=== PATIENT | female | born 1985 | race Caucasian/White ===

== ENCOUNTER 2022-01-31 09:15 | Outpatient (CLI) | payer OTHER, SELFPAY ==
[2022-01-31 15:22] LABS: Albumin* 4.1 g/dL (3.3-5.0); Chloride* 105 mmol/L (96-114); Sodium* 140 mmol/L (135-149)
[2022-01-31 15:23] LABS: Potassium* 4.5 mmol/L (3.6-5.1)
[2022-01-31 15:25] LABS: Alanine Aminotransferase* 21 U/L (4-35); Alkaline Phosphatase* 83 U/L (40-150); Aspartate Amino Transferase* 19 U/L (12-35); Bilirubin Total* 0.2 mg/dL (0.1-1.5); Blood Urea Nitrogen* 13 mg/dL (5-24); Carbon Dioxide* 27 mmol/L (20-32); Creatinine* 0.8 mg/dL (0.5-1.5); Estimated Glomerular Filt Rate 98 ml/min; Glucose* 83 mg/dL (60-115); Total Protein* 7.1 g/dL (6.0-8.3)
[2022-01-31 15:26] LABS: Basophils Absolute Auto 0.04 K/uL (0.00-0.30); Basophils Percent Auto 0.4 % (0.0-3.0); Calcium* 9.2 mg/dL (8.4-10.6); Eosinophils Absolute Auto 0.11 K/uL (0.00-0.50); Eosinophils Percent Auto 1.2 % (0.0-7.0); Hematocrit 40.5 % (33.0-51.0); Hemoglobin* 12.6 gm/dL (12.0-16.0); Immature Granulocytes Abs Auto 0.05 K/uL (0.00-0.30); Lymphocytes Absolute Auto 2.61 K/uL (0.90-2.90); Lymphocytes Percent Auto 28.5 % (20-44); Mean Corpuscular HGB Conc 31 gm/dL (32-36); Mean Corpuscular Hemoglobin 27 pg (26-34); Mean Corpuscular Volume 87 fL (80-100); Monocytes Percent Auto 6.5 % (0.0-11.0); Neutrophils Absolute Auto 5.76 K/uL (1.7-7.0); Neutrophils Percent Auto 62.9 % (42.0-72.0); Platelet Count* 306 K/uL (140-440); RDW Coefficient of Variation % 14.3 % (11.5-15.5); Red Blood Count 4.68 m/uL (4.00-5.20); White Blood Count* 9.17 K/uL (4.50-11.00)
[2022-01-31 15:34] LABS: Slide Review Reflex No
== END 2022-01-31 09:16 | disposition home or self-care (01) ==
PROVIDERS: PCP Nurse Practitioner Family; Visit Provider Nurse Practitioner Family
DX: E66.01 Morbid (severe) obesity due to excess calories (principal); Z68.43 Body mass index [BMI] 50.0-59.9, adult; R53.83 Other fatigue
CPT/HCPCS: 36415; 80053; 84443; 85025

== ENCOUNTER 2022-10-21 14:50 | Outpatient (CLI) | payer OTHER, SELFPAY | END 2022-10-21 14:51 | disposition home or self-care (01) | LOC: KYNREF 15:23 | PROVIDERS: PCP Nurse Practitioner Family; Referring Provider Nurse Practitioner Family; Visit Provider Nurse Practitioner Family | DX: R30.0 Dysuria (principal); N39.0 Urinary tract infection, site not specified | CPT/HCPCS: 81015; 87086 ==

== ENCOUNTER 2023-05-12 13:47 | Outpatient (CLI) | payer OTHER, SELFPAY | END 2023-05-12 13:48 | disposition home or self-care (01) | PROVIDERS: PCP Nurse Practitioner Family; Visit Provider Nurse Practitioner Family | DX: R10.12 Left upper quadrant pain (principal) | CPT/HCPCS: 80053; 82150; 83690; 85025; 87338 ==

== ENCOUNTER 2024-07-05 09:30 | Outpatient (CLI) | payer OTHER, SELFPAY | END 2024-07-05 09:31 | disposition home or self-care (01) | LOC: KYNREF 15:03 | PROVIDERS: PCP Nurse Practitioner Family; Visit Provider Nurse Practitioner Family | DX: M54.9 Dorsalgia, unspecified (principal); R07.89 Other chest pain | CPT/HCPCS: 87338 ==

== ENCOUNTER 2024-07-11 07:06 | Outpatient (CLI) | payer OTHER, SELFPAY ==
--- NOTE | 2024-07-11 07:15 | CRLHL7_ITS ---
For Patients: As a result of the Century Cures Act, medical imaging exams and procedure reports are released immediately into your electronic medical record. You may view this report before your referring provider. If you have questions, please contact your health care provider. INDICATION: Gallbladder dysfunction, back pain COMPARISON: Outside CT 06/19/2023 TECHNIQUE: Real time bartlett scale imaging and color Doppler analysis was performed of the right upper quadrant. FINDINGS: Liver echotexture is diffusely increased. No intrahepatic mass. Liver measures 18.2 cm. There is a normal appearance of the hepatic IVC and proximal abdominal aorta. There is no evidence of ascites. Shadowing echogenic stones are again noted within the gallbladder. The gallbladder wall measures 2 mm in thickness. The common bile duct is of normal size and measures 4 mm in diameter at the level of the claudy hepatis. The pancreas appears hyperechoic. There is no evidence of a stone or hydronephrosis within the right kidney. The right kidney measures 12.6 cm in length. IMPRESSION: Diffuse hepatic steatosis. Chronic cholelithiasis. Dictated by Ajay Hall MD @ 07/11/2024 8:33:24 AM (Electronically Signed)
== END 2024-07-11 07:07 | disposition home or self-care (01) ==
PROVIDERS: PCP Nurse Practitioner Family; Visit Provider Nurse Practitioner Family
DX: M54.9 Dorsalgia, unspecified (principal); K76.0 Fatty (change of) liver, not elsewhere classified; K80.20 Calculus of gallbladder without cholecystitis without obstruction; R07.89 Other chest pain
CPT/HCPCS: 76705

== ENCOUNTER 2024-09-12 13:52 | Outpatient (CLI) | payer OTHER, SELFPAY | END 2024-09-12 13:53 | disposition home or self-care (01) | PROVIDERS: PCP Nurse Practitioner Family; Visit Provider Nurse Practitioner Family | DX: E66.01 Morbid (severe) obesity due to excess calories (principal); R73.09 Other abnormal glucose; Z13.21 Encounter for screening for nutritional disorder | CPT/HCPCS: 80053; 80061; 82306; 84443 ==

== ENCOUNTER 2024-12-27 11:38 | Outpatient (CLI) | payer OTHER, SELFPAY ==
[2024-12-27 13:52] LABS: Strep A DNA Probe* NOT DETECTED (Not Detectd)
[2024-12-27 13:58] LABS: SARS PCR* Negative SARS-CoV-2 (Negative)
--- OUTSIDE RECORDS SUMMARY | 2024-12-28 00:27 | XMS_ITS | Encounter Summary ---
Author Organization [facility] Address [address] [place] [address] Care Team Providers Care Art Instructor Name Role Phone No Primary/Referring, Phy Primary Care Provider Unavailable Encounter Details Date Type Department Care Team (Latest Contact Info) Description 03/29/2014 Correspondence TMD at [facility] [address] [facility] [place] [address] Dino Bolton, DDS, MS [address] [place] [address] MAX STABILIZATION SPLINT Social History Tobacco Use Types Packs/Day Years Used Date Smoking Tobacco: Never Assessed Comments Unknown Sex and Gender Information Value Date Recorded Sex Assigned at Not on file Legal Sex Female 5:01 AM CDT Gender Identity Not on file Sexual Orientation Not on file documented as of this encounter Plan of Treatment Not on file documented as of this encounter Visit Diagnoses Not on filedocumented in this encounter Care Teams Art Instructor Relationship Specialty Start Date End Date No Primary/Referring, Domi PCP - General 03/27/14 documented as of this encounter
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
--- OUTSIDE RECORDS SUMMARY | 2024-12-28 00:27 | XMS_ITS | Encounter Summary ---
Author Organization [facility] Address [address] [place] [address] Care Team Providers Care Wheel And Pinion Inspector Name Role Phone No Primary/Referring, Phy Primary Care Provider Unavailable Encounter Details Date Type Department Care Team (Latest Contact Info) Description 07/05/2014 Correspondence TMD at [facility] [place] [address] [place] [address] Dino Bolton, DDS, MS [address] [place] [address] REFILL AUTHORIZATION REQUEST Social History Tobacco Use Types Packs/Day Years [...] on filedocumented in this encounter Care Teams Wheel And Pinion Inspector Relationship Specialty Start Date End Date No Primary/Referring, Domi PCP - General 03/27/14 documented as of this encounter
--- OUTSIDE RECORDS SUMMARY | 2024-12-28 00:27 | XMS_ITS | Encounter Summary ---
Author Organization [facility] Address [address] [place] [address] Care Team Providers Care Dictaphone Transcriber Name Role Phone No Primary/Referring, Phy Primary Care Provider Unavailable Encounter Details Date Type Department Care Team (Latest Contact Info) Description 03/20/2014 Correspondence TMD at [facility] [place] [address] [place] [address] Dino Bolton, DDS, MS [address] [place] [address] MAX STABILIZATION SPLINT Social History Tobacco Use [...] on filedocumented in this encounter Care Teams Dictaphone Transcriber Relationship Specialty Start Date End Date No Primary/Referring, Domi PCP - General 03/27/14 documented as of this encounter
--- OUTSIDE RECORDS SUMMARY | 2024-12-28 00:27 | XMS_ITS | Encounter Summary ---
Author Organization [facility] Address [address] [place] [address] Care Team Providers Care Aerospace Manager Name Role Phone No Primary/Referring, Phy Primary Care Provider Unavailable Encounter Details Date Type Department Care Team (Latest Contact Info) Description 04/24/1997 Orders Only Pepe Shah (Larry Galan) Social History Tobacco Use Types Packs/Day Years [...] on filedocumented in this encounter Care Teams Aerospace Manager Relationship Specialty Start Date End Date No Primary/Referring, Phy PCP - General 03/27/14 documented as of this encounter
--- OUTSIDE RECORDS SUMMARY | 2024-12-28 00:27 | XMS_ITS | Encounter Summary ---
Author Organization [facility] Address [address] [place] [address] Care Team Providers Care Office Services Clerk Name Role Phone No Primary/Referring, Phy Primary Care Provider Unavailable Encounter Details Date Type Department Care Team (Latest Contact Info) Description 04/05/2014 Correspondence TMD at [facility] [place] [address] [place] [address] Dino Bolton, DDS, MS [address] [place] [address] MEDICAL EQUIPMENT PROOF OF DELIVERY Social History Tobacco Use Types Packs/Day Years [...] on filedocumented in this encounter Care Teams Office Services Clerk Relationship Specialty Start Date End Date No Primary/Referring, Domi PCP - General 03/27/14 documented as of this encounter
--- OUTSIDE RECORDS SUMMARY | 2024-12-28 00:28 | XMS_ITS | Patient Health Record ---
Author Organization [facility] Address [address] [phone] Care Team Providers [employer] Sales Representative Name Role Phone [employer], PROVIDER Primary Care Provider Unavailab le Allergies Allergen (clinical drug ingredient) Drug/Non Drug Allergy documented on EMR Reaction Allergy Type Onset Date Status fluticasone / salmeterol Advair Diskus nausea Drug Allerg y Active penicillin V Penicillin V Potassium rash Drug Allergy Active acetaminophen / oxycodone Percocet itching Drug Allergy Active Reason For Referral No Information Medications Medication SIG (Take, Route, Frequency, Duration) Notes Start Date End Date Status Multivitamin - 1 tab(s) orally once a day Active Ventolin HFA 108 (90 Base) MCG/ACT 2 puff(s) inhaled 4 times a day prn 05/06/2017 Not-Taking Albuterol Sulfate (2.5 MG/3ML) 0.083% 3 mL by nebulizer every 6 hours prn 05/14/2017 Not-Taking Ketoconazole 2 % 1 ezequiel applied topically once a day 09/12/2009 Not-Taking Vanicream - 1 ezequiel applied topically 2 times a day 05/27/2018 Active Triamcinolone Acetonide 0.1 % 1 ezequiel applied topically 3 times a day 05/27/2018 Active zzz(CUSTOM Rx) PROPANOLOL *please review for potential update for e-prescription and drug interaction check* Not-Taking Tri Femynor 0.18/0.215/0.25 MG-35 MCG 1 tab(s) orally once a day; Duration: 28 day(s) needs appointment 11/18/2018 Active Asmanex HFA 100 MCG/ACT 1-2 puffs inhaled 2 times a day 05/14/2017 Not-Taking Iron 100 Plus 100-250-0.025-1 MG 1 tab(s) orally once a day Active Vitamin D High Potency 25 MCG (1000 UT) 1 tab once a day Not-Taking Vitamins 28-0.8 MG as directed qd Not-Taking Immunizations Vaccine Route Administration Date Status Comme nts DTP (History Only) Unknown 1986 Administered DTP (History Only) Unknown 1986 Administered DTP (History Only) Unknown 03/13/1987 Administered DTP (History Only) Unknown 06/13/1988 Administered DTP (History Only) Unknown 10/05/1991 Administered Hepatitis B through 19 yrs Unknown 01/15/1999 Administered Hepatitis B through 19 yrs Unknown 08/08/1999 Administered Hepatitis B through 19 yrs Unknown 05/20/2002 Administered Hib Unknown 06/13/1988 Administered HPV (Gardasil) IM Intramuscular 05/24/2007 Administered HPV (Gardasil) IM Intramuscular 07/30/2007 Administered HPV (Gardasil) IM Intramuscular 09/12/2009 Administered IPV Unknown 1986 Administered IPV Unknown 03/13/1987 Administered IPV Unknown 06/13/1988 Administered IPV Unknown 10/05/1991 Administered MMR Unknown 12/03/1987 Administered MMR Unknown 10/05/1991 Administered Td (7 yrs and Older) Unknown 01/15/1999 Administered Td (7 yrs and Older) Unknown 06/18/2004 Administered Tdap (Adacel 11-64 yrs) IM Intramuscular 09/12/2009 Admini stered Social History Tobacco Use: Social History Observation Description Date Details (start date - stop date) Former Smoker NA - NA Tobacco Status Question Answer Notes I am: former smoker How long has it been since you last smoked? 3-6 months Do you use other forms of tobacco? No Problems Problem Type SNOMED Code ICD Code Onset Dates Problem Status W/U Status Risk Notes Problem Sinusitis (07581370) Sinusitis (J32.9) Active confirmed Problem Irritable bowel (39699175) Irritable bowel (K58.9) Active confirmed Problem Secondary amenorrhea (122040763) Secondary amenorrhea (N91.1) Active confirmed Problem Morbid obesity (008225143) Morbid obesity due to excess calories (E66.01) Active confirmed Problem Migraine with aura (3574971) Migraine with aura and with status migrainosus, not intractable (G43.101) Active confirmed Plan Of Treatment No Information Insurance Providers Payer Name Payer Address Payer Phone Subscriber Number Group Number Insured Name Patient Relationship to Insured Coverage Start Date Coverage End Date [employer] [address] [place] [address] [id number] ForrestAlicia Self - patient is the insured 3 Medications Administered Medication Instructions Date of Administration Dosage Notes Toradol (Ketorolac Tromethamine) 09/06/2015 30 mg Medical (General) History Medical History History ICD Code DOFV 03/29/90 chicken pox Surgical History Surgery Date(Month/Year) No personal or family history of bleedin g problems No personal or family history of anesthe gloria problems Hospitalization History Reason Date(Month/Year) child
== END 2024-12-27 11:39 | disposition home or self-care (01) ==
PROVIDERS: PCP Nurse Practitioner Family; Visit Provider Nurse Practitioner Family
DX: J02.9 Acute pharyngitis, unspecified (principal)
CPT/HCPCS: 87635; 87651